=== PATIENT | female | born 1970 | race Caucasian/White ===

== ENCOUNTER 2016-06-23 21:55 | Emergency (ER) | payer MEDICAID ==
[~2016-06-23] VITALS: Ht 165.1 cm; Wt 94.1 kg
[~2016-06-23 21:55] MED LIST: ALBU8.5H IH
[2016-06-23] MEDS ORDERED: ALBUTEROL SULFATE 2.5 MG/0.5 ML NEB SOLUTION NEB ONE ×2 (22:30→22:45)
[2016-06-23] MEDS ORDERED: ALBUTEROL SULFATE 5 MG/ML 20 ML NEB SOLN [BULK] NEB ONE (22:30)
[2016-06-23] MEDS ORDERED: 0.9% SODIUM CHLORIDE 5 ML NEB SOLUTION NEB ONE (22:30)
[2016-06-23] MEDS ORDERED: IPRATROPIUM BROMIDE 0.5 MG/2.5 ML NEB SOLUTION NEB ONE (22:30)
[2016-06-23] MEDS ORDERED: 0.9% SODIUM CHLORIDE 15 ML NEB SOLUTION NEB ONE (22:31)
[2016-06-23] MEDS ORDERED: EPINEPHrine 1:1,000 [1 MG/ML] AMP SQ ONE (23:15)
[2016-06-23] MEDS ORDERED: PredniSONE 20 MG TABLET PO ONE (23:15)
[2016-06-24 01:00] VITALS: BP 133/84
== END 2016-06-24 02:17 | disposition home or self-care (01) ==
LOC: EMS 21:57
DX: J45.901 Unspecified asthma with (acute) exacerbation (principal)
CPT/HCPCS: 81025; 94060; 94644; 96372; 99285; J0171; J7512; J7611